=== PATIENT | female | born 1980 | race Caucasian/White ===

== ENCOUNTER 2022-01-31 15:38 | Observation (INO) | payer OTHER, SELFPAY ==
--- NOTE | ~2022-01-31 | XR_ITS ---
EXAMINATION: XR retrograde pyelo w/stent LT DATE: 02/01/2022 16:49 INDICATION: Left urolithiasis TECHNIQUE: 4 fluoroscopic images of the abdomen and pelvis were obtained during procedure performed b yuriy Kamara. Radiologist was not present for the imaging or procedure. The amount of fluoroscopy time used during this procedure was 0.4 minutes. COMPARISON: CT dated 01/31/2022 FINDINGS: The 6 x 2-3 mm with stone at the left ureterovesicular junction can be seen on the dental aide image. The s tone is no longer visualized on the subsequent images suggesting interval extraction. There is placem ent of a left internal ureteral stent with loops formed in the left renal pelvis and in the bladder. Small amount of injected contrast in the left renal collecting system demonstrates mild hydronephrosi s. IMPRESSION: 1. Left internal ureteral stent in expected position post likely left ureterovesicular junction stone extraction. Reviewed, dictated and finalized at location A. IMPRESSION: 1. Left internal ureteral stent in expected position post likely left ureterove sicular junction stone extraction.
--- NOTE | ~2022-01-31 | CT_ITS ---
EXAMINATION: CT abdomen pelvis w con DATE: 01/31/2022 16:54 INDICATION: Left-sided abdominal pain, nausea and vomiting. TECHNIQUE: Computed tomography (CT) of the abdomen and pelvis was performed with 100 mL Omnipaque-350 intravenous contrast. Automated exposure control and iterative reconstruction technique were employe d. The dose-length product was 303.61 mGy-cm. COMPARISON: None FINDINGS: Minimal dependent atelectasis in the bilateral lower lobes. Heart size is normal. No pericardial or p leural effusion. Mild cortical scarring at the upper pole of the left kidney. 6 mm nonobstructing sto ne at a lower pole calyx of the left kidney. 6 x 2-3 mm stone at the left ureterovesicular junction w ith mild left hydroureteronephrosis. Subcentimeter low-attenuation cysts in the right kidney and left hepatic lobe. Focal hepatic steatosis at the ligamentum teres. Gallbladder, spleen, pancreas and gracy ateral adrenal glands are normal. Bowels are normal with no wall thickening or obstruction. Tiny fat- containing umbilical hernia. Decompressed bladder is unremarkable. The uterus is not identified and h as likely been surgically resected. No free intraperitoneal gas or fluid. No pathologically enlarged abdominal or pelvic lymphadenopathy. Multiple phleboliths in the pelvis. Mild lumbar dextrocurvature. Transitional thoracolumbar and lumbosacral segments the latter sacralized on the left. IMPRESSION: 1. Left nephrolithiasis with obstructing 6 x 2-3 mm stone at the left ureterovesicular junction with mild left hydroureteronephrosis. Reviewed, dictated and finalized at location A. IMPRESSION: 1. Left nephrolithiasis with obstructing 6 x 2-3 mm stone at the left ureterove sicular junction with mild left hydroureteronephrosis.
[2022-01-31 15:40] VITALS: BP 139/94; PULSE 104; RESP 20; O2SAT 98
[2022-01-31] MEDS: ONDANSETRON INJ 4 MG/2 ML VIAL IV PUSH (16:11)
[2022-01-31] MEDS: SODIUM CHLORIDE 0.9% IV 1,000 ML 999 ML IV CONT (16:11)
[2022-01-31 16:12] LABS: Basophils Absolute Auto 0.1 K/mm3 (0.0-0.1); Basophils Percent Auto 1.2 % (0.2-1.2); Eosinophils Absolute Auto 0.2 K/mm3 (0-0.3); Eosinophils Percent Auto 2.5 % (0-4.4); Hematocrit 38.7 % (37.0-47.0); Hemoglobin 12.8 g/dL (12.0-15.0); Immature Granulocyte Absolute 0.01 K/mm3 (0.00-0.031); Immature Granulocyte Percent A 0.2 % (0-0.5); Lymphocytes Absolute Auto 1.82 K/mm3 (0.9-3.2); Lymphocytes Percent Auto 30.3 % (18.3-44.2); Mean Corpuscular HGB Conc 33.1 g/dl (32-36); Mean Corpuscular Hemoglobin 30.3 pg (26-34); Mean Corpuscular Volume 91.7 fl (80-100); Mean Platelet Volume 8.9 fl (7.4-10.4); Monocytes Absolute Auto 0.5 K/mm3 (0.1-0.6); Monocytes Percent Auto 8.2 % (2.6-8.5); Neutrophils Absolute Auto 3.5 K/mm3 (1.3-6.7); Neutrophils Percent Auto 57.6 % (45.5-73.1); Platelet Count Result 334 k/mm3 (150-375); Red Blood Count 4.22 M/mm3 (4.2-5.4); Red Cell Distribution Width 12.7 % (11.5-14.5)
[2022-01-31] MEDS: fentaNYL CITRATE INJ (*CRX) 100 MCG/2 ML VIAL 50 MCG IV PUSH (16:12)
[2022-01-31 16:25] LABS: Alanine Aminotransferase 27 U/L (4-35); Albumin Level 4.5 g/dL (3.5-5.1); Alkaline Phosphatase 111 U/L (38-126); Anion Gap 9 mmol/L (8-16); Aspartate Amino Transferase 35 U/L (14-36); Bilirubin,Total 0.3 mg/dL (0.2-1.3); Blood Urea Nitrogen 17 mg/dL (7-17); Calcium 8.9 mg/dL (8.4-10.2); Carbon Dioxide 23 mmol/L (22-30); Chloride 110 mmol/L (98-107); Estimated CRCL calculation 86 ml/min; Estimated Glomerular Filt Rate > 60; Glucose 85 mg/dL (65-110); Lipase 93 U/L (23-300); Potassium 3.9 mmol/L (3.4-5.0); Sodium 142 mmol/L (137-145)
[2022-01-31 16:40] VITALS: BP 139/94; PULSE 106; RESP 18; O2SAT 97
--- NOTE | 2022-01-31 16:41 | ED.ABDPAIN ---
HPI - Abdominal Pain General Chief Complaint: Abdominal Pain Stated Complaint: abd pain Time Seen by Provider: 01/31/22 15:46 Source: patient History of Present Illness HPI narrative: Patient presents with left-sided abdominal pain that started today her symptoms are sharp, constant, waxing waning intensity, without clear aggravating or alleviating factors. Her symptoms radiate across her back and abdomen. Reports a history of chronic UTIs and is frequently on antibiotics as well as frequent ureteral stones. Denies any vaginal bleeding or irritation she denies any constipation or diarrhea. Related Data Allergies Allergy/AdvReac Type Severity Reaction Status Date / Time adhesive Allergy Unknown BLISTERS Verified 01/31/22 19:35 aspirin Allergy Itching Verified 01/31/22 19:35 latex Allergy Hives Verified 01/31/22 19:35 codeine AdvReac Unknown N&V Verified 01/31/22 19:35 ketorolac [From Toradol] AdvReac Itching Verified 01/31/22 19:35 Review of Systems Review of Systems: CONSTITUTIONAL: Denies fever, chills, or sweats. EYES: Denies visual changes, redness, or discharge. ENT: Denies rhinorrhea, congestion, sore throat, or otalgia. CARDIOVASCULAR: Denies chest pain, palpitations, or edema. RESPIRATORY: Denies cough or dyspnea. GASTROINTESTINAL: Abdominal pain with nausea vomiting GENITOURINARY: Denies dysuria or hematuria. SKIN: Denies rash or itching. MUSCULOSKELETAL: Denies joint pain, or myalgia. NEUROLOGIC: Denies headache, numbness, dizziness, or weakness. PSYCHIATRIC: Denies anxiety or depression. All systems reviewed & are unremarkable except as noted in HPI and below PMFSH Past Medical History Medical History (Updated 01/31/22 @ 19:19 by Keyur Wilde MD) Ureteral stone Social History Social History (Updated 01/31/22 @ 16:43 by Keyur Wilde MD) Living arrangements: with family Exam Narrative: GENERAL: Well-appearing, well-nourished, and in moderate distress due to pain HEAD: Normocephalic, atraumatic. EYES: PERRLA and EOMI. ENT: Nares clear, no rhinorrhea or epistaxis. Mucous membranes moist. NECK: Supple. No masses. No JVD CHEST: Clear to auscultation. No respiratory distress. No wheezes rales or rhonchi HEART: Regular rate and rhythm. No murmur heard. Normal peripheral pulses. ABDOMEN: Exquisite left-sided abdominal pain with guarding soft, nondistended, normal active bowel sounds. EXTREMITIES: Normal range of motion. No edema. SKIN: Warm, dry, no rash. NEURO: No focal deficits. Alert and oriented x3. PSYCH: Normal mood and affect. Course Reevaluation(s) Reevaluation #1: Patient is difficult to control pain in the ER Case cussed with urology due to patient's severity of pain she would likely fail outpatient treatment. Will admit to the hospital seen for further management. Patient is comfortable inpatient plan. Date: 01/31/22 Time: 19:18 Vital Signs Vital signs: Vital Signs Pulse Rate 104 H 01/31/22 15:40 Respiratory Rate 20 01/31/22 15:40 Blood Pressure 139/94 H 01/31/22 15:40 Pulse Oximetry 98 01/31/22 15:40 Pulse Rate 93 01/31/22 19:46 Respiratory Rate 16 01/31/22 19:46 Blood Pressure 131/81 01/31/22 19:46 Pulse Oximetry 99 01/31/22 19:46 MDM - Abdominal Pain MDM Narrative Medical decision making narrative: Patient presented with left-sided abdominal pain history of chronic UTIs and and ureteral stones. Patient appeared to be in moderate distress. Labs and imaging obtained. UA concerning for infection imaging showing 6 mm left UVJ stone. Patient was given multiple dose of lidocaine to have pain due to patient's level of pain she will be admitted for pain control and urological evaluation. Case was discussed with urology will follow along. Patient excepted by hospitalist team for further management. Lab Data Result diagrams: 01/31/22 16:06 01/31/22 16:06 Labs: Lab Results 01/31/22 01/31/22 01/31/22 Range/Units
[2022-01-31] MEDS: HYDROmorphone HCL INJ (*CRX) 1 MG/ML SYR IV PUSH ×2 (17:14→18:36)
[2022-01-31 18:23] LABS: Appearance Urine Clear (Clear); Bilirubin Urine Negative (Negative); Blood Urine 2+ (Negative); Color Urine Yellow (Yellow); Glucose Urine UA Negative (Negative); Ketones Urine Trace mg/dL (Negative); Leukocyte Esterase Ur Negative LEU/UL (Negative); Nitrate Urine Positive (Negative); Protein Urine Negative (Negative); pH Urine 6.5 (5.0-9.0)
[2022-01-31 18:28] LABS: Bacteria Urine Trace /hpf; Mucus Urine Rare /lpf; RBC Urine 21-50 /hpf (0-2); Squamous Epithelial Cell Urine Rare /hpf (Few); WBC Urine 51-75 /hpf
[2022-01-31 18:29] LABS: Add Urine Microscopic? YES
[2022-01-31] MEDS: SODIUM CHLORIDE 0.9% IV 1,000 ML 125 ML IV CONT (19:37)
[2022-01-31 19:46] VITALS: BP 131/81; PULSE 93; RESP 16; O2SAT 99
[2022-01-31] MEDS: diphenhydrAMINE HCl CAP 25 MG CAPSULE PO (19:50)
[2022-01-31 21:05] VITALS: BMI 25.7
--- NOTE | 2022-01-31 21:09 | PM.IMHP ---
H&P: HPI History of Present Illness Date/Time: Patient was placed observation status for expected length of stay less than 23 hours for management, will plan to re-evaluate tomorrow for improvement. 01/31/22 21:09 Chief Complaint: Left abdominal/groin pain Narrative: Ms. Concepcion is a 41-year-old female who presented emergency room with complaints of left lower abdominal pain and groin pain that wrapped around to her left flank area. Patient states the pain began approximately 30-45 minutes prior to arrival to the emergency room. Patient states she has chronic urinary tract infections and she thought this may be the problem. Patient states she has had renal calculi in the past, but has been more like sand and not large stones. Patient states that she did notice hematuria last week that went away on its own. Patient states today she began noticing hematuria again and then had some nausea and vomiting yesterday and today. Patient denies any dysuria, frequency, or urgency. Patient denies any fever or chills. Patient states her only past medical history is chronic urinary tract infections. Review of Systems Review of Systems: A 12 point review of systems was completed patient all pertinent positive and negative per HPI the remainder are unremarkable. [facility] Past Medical History Medical History (Updated 01/31/22 @ 21:19 by Cora Mcfarland APRN) Chronic urinary tract infection Ureteral stone Surgical History Surgical History (Updated 01/31/22 @ 21:14 by Cora Mcfarland APRN) History of dilation and curettage History of total hysterectomy Social History Social History (Updated 01/31/22 @ 21:15 by Cora Mcfarland APRN) Smoking packs per day: 0.5 Smoking cigarettes per day: 10.0 Years smoked: 30 Smoking pack-years: 15.00 Smoking status: Current every day smoker Living arrangements: with family Meds Home Medications and Allergies Allergies Allergy/AdvReac Type Severity Reaction Status Date / Time adhesive Allergy Unknown BLISTERS Verified 01/31/22 19:35 aspirin Allergy Itching Verified 01/31/22 19:35 latex Allergy Hives Verified 01/31/22 19:35 codeine AdvReac Unknown N&V Verified 01/31/22 19:35 ketorolac [From Toradol] AdvReac Itching Verified 01/31/22 19:35 Vital Signs Vital Signs - 24 hr 01/31/22 15:40 01/31/22 16:40 01/31/22 19:46 Pulse Rate 104 H 106 H 93 Respiratory Rate 20 18 16 Blood Pressure 139/94 H 139/94 H 131/81 Pulse Oximetry 98 97 99 Exam Narrative: Constitutional: Patient is well-nourished in no acute distress. Patient is alert and oriented x3 HEENT: Moist mucous membranes. No scleral icterus. No lymphadenopathy. Neck: No carotid bruits noted no JVD noted Lungs: Lung sounds are clear to auscultation bilaterally. No accessory muscle use. No rhonchi, rales, or wheezes noted. Cardiovascular: Apical pulse is regular rate and rhythm. S1-S2 noted, no S3 or S4 noted. No gallops, murmurs, or rubs noted. Abdomen: Soft, round, and nontender. No palpable masses. Back: Patient complains of pain to her left costovertebral angle with palpation. Extremities: No edema. Nontender. Skin: No rashes or lesions. Warm and dry. Skin is intact. Neurological: No focal neurological deficits. Cranial nerves II-XII grossly intact. Psychiatric: Cooperative, appropriate mood, and affect H&P: Results Labs Labs: Short CBC 01/31/22 Range/Units 16:06 WBC 6.0 (4.5-10.0) K/mm3 Hgb 12.8 (12.0-15.0) g/dL Hct 38.7 (37.0-47.0) % Plt Count 334 (150-375) k/mm3 BMP 01/31/22 16:06 Sodium 142 Potassium 3.9 Chloride 110 H Carbon Dioxide 23 BUN 17 Creatinine 0.60 L Glucose 85 Calcium 8.9 Liver Function 01/31/22 Range/Units 16:06 Total Bilirubin 0.3 (0.2-1.3) mg/dL AST 35 (14-36) U/L ALT 27 (4-35) U/L Alkaline Phosphatase 111 (38-126) U/L Albumin 4.5 (3.5-5.1) g/dL Urine 01/31/22 Range/Units 18:14 Urine C
--- NOTE | 2022-01-31 21:21 | PC.NURSE ---
Spoke with Cora CEVALLOS) regarding patients dietary status. Cora CEVALLOS) okayed small food and water until midnight.
[2022-01-31 22:00] VITALS: BP 128/80; PULSE 90; RESP 16; TEMP 36.7; O2SAT 100
[2022-01-31] MEDS: HYDROmorphone HCL INJ (*CRX) 1 MG/ML SYR 0.5 MG IV PUSH (23:34)
[2022-01-31 23:36] VITALS: BMI 25.7
--- NOTE | 2022-01-31 23:41 | PC.NURSE ---
This patient, Matias Concepcion, was admitted to [facility] Surg Room 301-01. Patient/family oriented to hospital policies and general routines including ID bracelet, bed and alarms, visiting hours, pain management, procedures, bathroom and other care routines, personal items, smoking policy, room service/diet, and visiting hours. Information on how to activate the Rapid Response Team has been discussed. Patient/Family are encouraged to report perceived risks to care and to ask questions if they do not understand what they are told or what they should do.
[2022-02-01] VITALS (10 sets, daily range): BP systolic 108–142; BP diastolic 72–96; PULSE 76–94; RESP 12–20; TEMP 36.1–37.5; O2SAT 97–100
[2022-02-01] MEDS: HYDROmorphone HCL INJ (*CRX) 1 MG/ML SYR 0.5 MG IV PUSH ×6 (03:35→23:42)
[2022-02-01] MEDS: SODIUM CHLORIDE 0.9% IV 1,000 ML 125 ML IV CONT ×2 (03:39→18:18)
[2022-02-01 05:43] LABS: Basophils Percent Auto 0.6 % (0.2-1.2); Eosinophils Absolute Auto 0.2 K/mm3 (0-0.3); Eosinophils Percent Auto 2.7 % (0-4.4); Hematocrit 34.7 % (37.0-47.0); Hemoglobin 11.6 g/dL (12.0-15.0); Immature Granulocyte Absolute 0.02 K/mm3 (0.00-0.031); Immature Granulocyte Percent A 0.3 % (0-0.5); Lymphocytes Absolute Auto 2.03 K/mm3 (0.9-3.2); Lymphocytes Percent Auto 32.3 % (18.3-44.2); Mean Corpuscular HGB Conc 33.4 g/dl (32-36); Mean Corpuscular Hemoglobin 30.1 pg (26-34); Mean Corpuscular Volume 89.9 fl (80-100); Mean Platelet Volume 8.8 fl (7.4-10.4); Monocytes Absolute Auto 0.6 K/mm3 (0.1-0.6); Monocytes Percent Auto 10.2 % (2.6-8.5); Neutrophils Absolute Auto 3.4 K/mm3 (1.3-6.7); Neutrophils Percent Auto 53.9 % (45.5-73.1); Platelet Count Result 291 k/mm3 (150-375); Red Blood Count 3.86 M/mm3 (4.2-5.4); Red Cell Distribution Width 12.5 % (11.5-14.5); White Blood Count 6.3 K/mm3 (4.5-10.0)
[2022-02-01 05:51] LABS: Anion Gap 3 mmol/L (8-16); Blood Urea Nitrogen 13 mg/dL (7-17); Calcium 8.3 mg/dL (8.4-10.2); Carbon Dioxide 26 mmol/L (22-30); Chloride 108 mmol/L (98-107); Estimated CRCL calculation 86 ml/min; Estimated Glomerular Filt Rate > 60; Glucose 107 mg/dL (65-110); Potassium 3.7 mmol/L (3.4-5.0); Sodium 137 mmol/L (137-145)
[2022-02-01] MEDS: ONDANSETRON INJ 4 MG/2 ML VIAL IV PUSH ×2 (07:59→14:36)
--- NOTE | 2022-02-01 11:04 | WPDURCON ---
Assessment and Plan Assessment and plan (1) Ureteral stone: Code(s): N20.1 - Calculus of ureter Status: Acute Assessment and Plan: Plan to go to the OR today for: Cystoscopy, left ureteroscopy with possible left ureteral stone extraction, possible left stent placement, left retrograde pyelogram, possible holmium laser with Dr. Kamara. We discussed that a left stent placement and no stone removal today may be necessary d/t her infection. She understands that this would require a second outpatient ureteroscopy to remove her stone when her UTI is resolved, then a stent removal in the office 1-2 weeks after that. Keep NPO Obtain consent. (2) UTI (urinary tract infection): Qualifiers: Hematuria presence: with hematuria Urinary tract infection type: site unspecified Qualified Code(s): N39.0 - Urinary tract infection, site not specified; R31.9 - Hematuria, unspecified Code(s): N39.0 - Urinary tract infection, site not specified Status: Acute Assessment and Plan: Continue IV antibiotics, tailor to culture results. Urology Consult Note HPI Date Seen: 02/01/22 Requesting Physician: Renée Lopez MD Primary Care Provider: UNKNOWN,DOCTOR Consult Narrative Narrative: Matias Concepcion is a 41 year old female who presented to the ER last night for acute onset of LLQ pain that radiates to the left flank, this is accompanied by nausea, dysuria, hematuria, and chills. Her nausea began one week ago, however the other symptoms started yesterday. She states she has a history of chronic UTI's and stones which she passes spontaneously. She has never seen a urologist. She was found on CT in the ER to have a 4m0-0ij left UVJ stone with hydronephrosis. Her WBC is 6.3, creatinine is 0.60 and her UA is suggestive of a UTI with positive nitrites. She has a urine culture pending. She is afebrile at this time. Patient is crying at the bedside and stating her pain is a 3/10 after dilaudid but she is very uncomfortable. Review of Systems Cardiovascular: Cardiovascular: Denies chest pain Respiratory: Respiratory: Reports no additional respiratory complaints Gastrointestinal: Gastrointestinal: Reports abdominal pain (LLQ), Reports nausea and Denies vomiting Genitourinary: Genitourinary: Reports hematuria, Reports dysuria, Denies pelvic pain and Reports flank pain PMFSH Past Medical History Medical History Chronic urinary tract infection Ureteral stone Surgical History Surgical History History of dilation and curettage History of total hysterectomy Social History Social History Smoking packs per day: 0.5 Smoking cigarettes per day: 10.0 Years smoked: 30 Smoking pack-years: 15.00 Smoking status: Current every day smoker Tobacco type: cigarettes Second hand tobacco smoke exposure: Yes Alcohol intake: never Substance use: never Substance use type: does not use Living arrangements: with family Spiritual care concerns: No Meds Home Medications and Allergies Home Medications Medication Instructions Recorded Confirmed Type No Home Medications 02/01/22 02/01/22 History Allergies Allergy/AdvReac Type Severity Reaction Status Date / Time adhesive Allergy Unknown BLISTERS Verified 01/31/22 19:35 aspirin Allergy Itching Verified 01/31/22 19:35 latex Allergy Hives Verified 01/31/22 19:35 codeine AdvReac Unknown N&V Verified 01/31/22 19:35 ketorolac [From Toradol] AdvReac Itching Verified 01/31/22 19:35 Vital Signs Vital Signs - 24 hr 01/31/22 15:40 01/31/22 16:40 01/31/22 19:46 Temperature Pulse Rate 104 H 106 H 93 Respiratory Rate 20 18 16 Blood Pressure 139/94 H 139/94 H 131/81 Pulse Oximetry 98 97 99 01/31/22 22:00 02/01/22 06:00 02/01/22 08:19 Temperature 98.1
--- NOTE | 2022-02-01 11:41 | PM.IMPN ---
Progress Note: A&P Assessment and Plan (1) Hydronephrosis with renal and ureteral calculous obstruction: Code(s): N13.2 - Hydronephrosis with renal and ureteral calculous obstruction Status: Acute Assessment and Plan: Urology has been consult injury appreciate assistance and recommendations Patient has been NPO until evaluated by Urology, patient is planned for the OR this afternoon for a cystoscopy, left ureteroscopy with possible left urethral stone extraction, possible left stent placement and left retrograde pyelogram with Dr. Art Pain management (2) UTI (urinary tract infection): Qualifiers: Hematuria presence: with hematuria Urinary tract infection type: site unspecified Qualified Code(s): N39.0 - Urinary tract infection, site not specified; R31.9 - Hematuria, unspecified Code(s): N39.0 - Urinary tract infection, site not specified Status: Acute Assessment and Plan: Patient received Rocephin in the emergency room will continue with current regimen and await culture and sensitivity reports. Subjective Date/time seen: 02/01/22 11:41 Patient is alert and oriented this morning. She appeared to be in significant amount of lower abdominal pain. Urology was able to evaluate the patient and suggested going to the OR today for cystoscopy with possible left urethral stone extraction and stent placement. Patient was agreeable. Patient continues to receive IV antibiotics for her urinary tract infection, pending urine cultures. No acute events reported by RN during the night Review of Systems Review of Systems: All systems reviewed & are unremarkable except as noted in HPI and below Exam Narrative: Constitutional: Patient is well-nourished in no acute distress. Patient is alert and oriented x3 HEENT: Moist mucous membranes. No scleral icterus. No lymphadenopathy. Neck: No carotid bruits noted no JVD noted Lungs: Lung sounds are clear to auscultation bilaterally. No accessory muscle use. No rhonchi, rales, or wheezes noted. Cardiovascular: Apical pulse is regular rate and rhythm. S1-S2 noted, no S3 or S4 noted. No gallops, murmurs, or rubs noted. Abdomen: Soft, round, and nontender. No palpable masses. Back: Patient complains of pain to her left costovertebral angle with palpation. Extremities: No edema. Nontender. Skin: No rashes or lesions. Warm and dry. Skin is intact. Neurological: No focal neurological deficits. Cranial nerves II-XII grossly intact. Psychiatric: Cooperative, appropriate mood, and affect Objective Data Vital Signs Vital Signs: Vital Signs - 24 hr 01/31/22 15:40 01/31/22 16:40 01/31/22 19:46 Temperature Pulse Rate 104 H 106 H 93 Respiratory Rate 20 18 16 Blood Pressure 139/94 H 139/94 H 131/81 Pulse Oximetry 98 97 99 01/31/22 22:00 02/01/22 06:00 02/01/22 08:19 Temperature 98.1 F 99.5 F Pulse Rate 90 94 Respiratory Rate 16 18 Blood Pressure 128/80 136/96 H Pulse Oximetry 100 98 98 Intake/Output Intake/Output: Intake & Output 01/29/22 01/30/22 01/31/22 02/01/22 23:59 23:59 23:59 23:59 Intake Total 1050 1000 Output Total 475 Balance 1050 525 Meds/Results Medications: Active Medications Generic Name Dose Route Start Last Admin Trade Name Freq PRN Reason Stop Dose Admin Hydromorphone HCl 0.5 mg 01/31/22 21:04 02/01/22 10:50 Hydromorphone Hcl Inj (*Crx) 1 Mg/Ml Syr IV PUSH 0.5 mg Q3H PRN Administration Pain Rated 7-10 Acetaminophen 1,000 mg in 100 mls @ 400 mls/hr 01/31/22 19:19 Ofirmev 1,000 Mg Ivpb IVPB 02/01/22 19:18 Q6H PRN Mild Pain (1-3) or Fever Sodium Chloride 1,000 mls @ 125 mls/hr 01/31/22 19:20 02/01/22 03:39 Normal Saline Iv IV CONT 125 mls/hr .Q8H LALIT Administration Ceftriaxone Sodium/Dextrose 1 gm in 50 mls @ 100 mls/hr 02/01/22 18:00 Rocephin 1 Gm/D5w 50 Ml IVPB Q24H LALIT Ondansetron HCl 4 mg 01/31/22 19:19 02/01/22 07:
--- NOTE | 2022-02-01 14:45 | PC.NURSE ---
This patient, Matias Concepcion, was transferred to [cystoscopy] on 02/01/22 at 1421. Personal belongings sent with patient. Report given to [ ]. Appropriate documentation sent with patient.
--- NOTE | 2022-02-01 14:51 | WPDANESEPPF ---
Anes - Initial Pre Proc Eval Procedure: Operation Date: 02/01/22 15:30 Proposed Procedures p Cystoscopy, Left Ureteroscopy, Left Retrograde Pyelogram, Left Stone Extraction, Possible Left Stent Placement, - Sary Kamara MD s Possible Holmium Laser Procedure - Sary Kamara MD Date/Time: 02/01/22 14:51 Surgeon: Renée Lopez MD Pre Op Diagnosis: ureteral stone Patient Data Age: 41 Gender: F Height: 1.6 m Weight: 65.9 kg Last Vital Signs Temp 36.6 C 02/01/22 14:44 Pulse 80 02/01/22 14:44 Resp 16 02/01/22 14:44 BP 134/72 02/01/22 14:44 Pulse Ox 100 02/01/22 14:44 Allergies Allergy/AdvReac Type Severity Reaction Status Date / Time adhesive Allergy Unknown BLISTERS Verified 01/31/22 19:35 aspirin Allergy Itching Verified 01/31/22 19:35 latex Allergy Hives Verified 01/31/22 19:35 codeine AdvReac Unknown N&V Verified 01/31/22 19:35 ketorolac [From Toradol] AdvReac Itching Verified 01/31/22 19:35 Home Medications Medication Instructions Recorded Confirmed Type No Home Medications 02/01/22 02/01/22 History Laboratory Tests 01/31/22 01/31/22 01/31/22 16:06 16:06 16:06 WBC 6.0 K/mm3 K/mm3 (4.5-10.0) RBC 4.22 M/mm3 M/mm3 (4.2-5.4) Hgb 12.8 g/dL g/dL (12.0-15.0) Hct 38.7 % % (37.0-47.0) MCV 91.7 fl fl (80-100) MCH 30.3 pg pg (26-34) MCHC 33.1 g/dl g/dl (32-36) RDW 12.7 % % (11.5-14.5) Plt Count 334 k/mm3 k/mm3 (150-375) MPV 8.9 fl fl (7.4-10.4) Immature Gran % (Auto) 0.2 % % (0-0.5) Neut % (Auto) 57.6 % % (45.5-73.1) Lymph % (Auto) 30.3 % % (18.3-44.2) Harlan % (Auto) 8.2 % % (2.6-8.5) Eos % (Auto) 2.5 % % (0-4.4) Baso % (Auto) 1.2 % % (0.2-1.2) Lymph # (Auto) 1.82 K/mm3 K/mm3 (0.9-3.2) Harlan # (Auto) 0.5 K/mm3 K/mm3 (0.1-0.6) Eos # (Auto) 0.2 K/mm3 K/mm3 (0-0.3) Baso # (Auto) 0.1 K/mm3 K/mm3 (0.0-0.1) Abs Immat Gran (auto) 0.01 K/mm3 K/mm3 (0.00-0.031) Absolute Neuts (auto) 3.5 K/mm3 K/mm3 (1.3-6.7) Absolute Nucleated RBC 0.0 K/mm3 K/mm3 (0.0-0.012) Nucleated RBC % 0.0 % % (0.0-0.2) Sodium 142 mmol/L mmol/L (137-145) Potassium 3.9 mmol/L mmol/L (3.4-5.0) Chloride 110 mmol/L H mmol/L (98-107) Carbon Dioxide 23 mmol/L mmol/L (22-30) Anion Gap 9 mmol/L mmol/L (8-16) BUN 17 mg/dL mg/dL (7-17) Creatinine 0.60 mg/dL L mg/dL (0.7-1.0) Estim Creat Clear Calc 86 ml/min ml/min Estimated GFR > 60 (59 - ) Glucose 85 mg/dL mg/dL (65-110) Calcium 8.9 mg/dL mg/dL (8.4-10.2) Total Bilirubin 0.3 mg/dL mg/dL (0.2-1.3) AST 35 U/L U/L (14-36) ALT 27 U/L U/L (4-35) Alkaline Phosphatase 111 U/L U/L (38-126) Total Protein 7.0 g/dL g/dL (6.3-8.2) Albumin 4.5 g/dL g/dL (3.5-5.1) Lipase 93 U/L U/L Cancelled (23-300) Urine Color Urine Appearance Urine pH Ur Specific [place] Urine Protein Urine Glucose (UA) Urine Ketones Ur Blood (Man) Urine Nitrate Urine Bilirubin Urine Urobilinogen Leukocyte Esterase Rfl Urine RBC Urine WBC Ur Squamous Epith Cells Urine Bacteria Urine Mucus 01/31/22 02/01/22 02/01/22 18:14 05:28 05:28 WBC 6.3 K/mm3 K/mm3 (4.5-10.0) RBC 3.86 M/mm3 L M/mm3 (4.2-5.4) Hgb 11.6 g/dL L g/dL (12.0-15.0) Hct 34.7 % L % (37.0-47.0) MCV 89.9 fl fl (80-100) MCH 30.1 pg pg (26-34) MCHC 33.4 g/dl g/dl (32-36)
--- NOTE | 2022-02-01 16:24 | WPDHPUPDATE1 ---
History and Physical Update Update Date/Time: 02/01/22 16:24 History and Physical has been reviewed, including an updated exam of the patient. There are NO changes in the patient's condition. Risks, benefits, and alternatives have been discussed and questions answered. Patient agrees to proceed with procedure.
[2022-02-01] MEDS: LIDOCAINE HCL 2% GEL UROJET 10 ML PKG MUCOUS MEM (16:38)
--- NOTE | 2022-02-01 16:48 | W.PM.PROC2 ---
Procedure Note - Detailed Date of Procedure 02/01/22 Pre-op Diagnosis left ureteral stone, hydronephrosis Post-op Diagnosis Same Procedure Performed Cystoscopy, left ureteroscopy, stone extraction, retrograde pyelogram, stent insertion Surgeon Sary Kamara MD Anesthesia General Description of Procedure Informed consent was obtained. Patient was the operating. She was given preoperative IV antibiotics. She reduced anesthesia. She was prepped draped normal sterile fashion. Inserted a 20 F cystoscope through the urethra into the bladder inspected the bladder and there were no mucosal abnormalities except the inflammation around the left ureteral orifice with a stone impacted and at the ureteral orifice. I was able to then manipulate a wire past the stone and dilate the distal ureter. As the stone was impacted at the distal ureter and visible from the bladder, I advanced a semi rigid ureteral scope into the distal ureter without pressure, grasped the stone with a basket and easily removed it. A retrograde pyelogram revealed moderate hydroureteronephrosis and no residual filling defects. Over this wire a 6 F variable length stent was placed with a curl in renal pelvis from bladder. Bladder was emptied. 10cc of viscous lidocaine were instilled. Patient taken to PACU in stable condition Urine Output 475 Drains No Packing No Pathology Yes Complications No immediate complications Condition Stable Disposition PACU
[2022-02-01] MEDS: LACTATED RINGERS 1,000 ML 30 ML IV CONT ×2 (16:52→17:17)
[2022-02-01] MEDS: fentaNYL CITRATE INJ (*CRX) 100 MCG/2 ML VIAL 25 MCG IV PUSH ×4 (17:07→17:25)
[2022-02-01] MEDS: diphenhydrAMINE HCl INJ 50 MG/ML VIAL 25 MG IV PUSH (17:15)
[2022-02-02] MEDS: SODIUM CHLORIDE 0.9% IV 1,000 ML 125 ML IV CONT (02:22)
[2022-02-02 05:00] VITALS: BP 108/57; PULSE 82; RESP 16; TEMP 37; O2SAT 98
[2022-02-02 07:52] VITALS: BP 106/69; PULSE 77; RESP 16; TEMP 36.4; O2SAT 100
--- NOTE | 2022-02-02 09:00 | WPDUROPN2 ---
Progress Note: A&P Assessment and Plan (1) Hydronephrosis with renal and ureteral calculous obstruction: Code(s): N13.2 - Hydronephrosis with renal and ureteral calculous obstruction Status: Acute Assessment and Plan: Will plan to get a KYRA in a few weeks to ensure hydro resolves. (2) Ureteral stone: Code(s): N20.1 - Calculus of ureter Status: Acute Assessment and Plan: Resolved via ureteroscopy. (3) UTI (urinary tract infection): Qualifiers: Hematuria presence: with hematuria Urinary tract infection type: site unspecified Qualified Code(s): N39.0 - Urinary tract infection, site not specified; R31.9 - Hematuria, unspecified Code(s): N39.0 - Urinary tract infection, site not specified Status: Acute Assessment and Plan: Urine Culture growing gram negative Bacilli, continue IV antibiotics, tailor PO antibiotics to culture sensitive recommendations. Ok to discharge home at any time per urology. She will follow up in one week with Dr. Kamara for a stent removal in the office. Subjective Subjective Date/Time Seen: 02/02/22 09:00 POD #1 Cystoscopy, left ureteroscopy with stone extraction, left retrograde pyelogram, left stent placement. Patient is much more comfortable today, she is tolerating her stent well and sleeping in bed upon exam today. She is tolerating diet, urination and activity well. Review of Systems Cardiovascular: Cardiovascular: Denies chest pain Respiratory: Respiratory: Reports no additional respiratory complaints Gastrointestinal: Gastrointestinal: Reports abdominal pain, Denies nausea and Denies vomiting Genitourinary: Genitourinary: Reports hematuria, Denies pelvic pain, Reports flank pain and Reports urinary urgency Exam Resp: Effort & Inspection: normal respiratory effort Cardio: Rate: regular rate GI: GI Palp: Yes Soft to palpation and Yes Tenderness to palpation present (GI) (LLQ) : General: Yes CVA tenderness on the left Extrem: General: no edema Objective Data Vital Signs Vital Signs: Vital Signs - 24 hr 02/01/22 14:00 02/01/22 14:44 02/01/22 16:52 Temperature 98.3 F 97.9 F 97.0 F L Pulse Rate 81 80 76 Respiratory Rate 20 16 12 Blood Pressure 142/82 H 134/72 108/76 Pulse Oximetry 98 100 100 02/01/22 17:05 02/01/22 17:20 02/01/22 17:35 Temperature Pulse Rate 92 83 77 Respiratory Rate 18 16 16 Blood Pressure 138/85 135/80 117/93 H Pulse Oximetry 100 100 99 02/01/22 17:47 02/01/22 22:07 02/02/22 05:00 Temperature 97.8 F 98.6 F Pulse Rate 77 91 82 Respiratory Rate 14 18 16 Blood Pressure 132/80 128/87 108/57 L Pulse Oximetry 97 100 98 02/02/22 07:52 Temperature 97.5 F L Pulse Rate 77 Respiratory Rate 16 Blood Pressure 106/69 Pulse Oximetry 100 Intake/Output Intake/Output: Intake & Output 01/30/22 01/31/22 02/01/22 02/02/22 23:59 23:59 23:59 23:59 Intake Total 1050 2750 1000 Output Total 1200 850 Balance 1050 1550 150 Meds/Results Medications: Active Medications Generic Name Dose Route Start Last Admin Trade Name Freq PRN Reason Stop Dose Admin Cefdinir 300 mg 02/03/22 09:00 Cefdinir 300 Mg Capsule PO Q12HR LALIT Hydromorphone HCl 0.5 mg 01/31/22 21:04 02/01/22 23:42 Hydromorphone Hcl Inj (*Crx) 1 Mg/Ml Syr IV PUSH 0.5 mg Q3H PRN Administration Pain Rated 7-10 Sodium Chloride 1,000 mls @ 125 mls/hr 01/31/22 19:20 02/02/22 02:22 Normal Saline Iv IV CONT 125 mls/hr .Q8H LALIT Administration Ceftriaxone Sodium/Dextrose 1 gm in 50 mls @ 100 mls/hr 02/01/22 18:00 02/01/22 18:49 Rocephin 1 Gm/D5w 50 Ml IVPB 02/02/22 22:00 Infused Q24H LALIT Infusion Ondansetron HCl 4 mg 01/31/22 19:19 02/01/22 14:36 Ondansetron Inj 4 Mg/2 Ml Vial IV PUSH 4 mg Q4H PRN Administration Nausea Radiology Results: ITS Impressions Abdomen/Pelvis CT 01/31/22 16:56 IMPRESSION: 1. Left nephrolithiasis with obstructing 6 x
[2022-02-02] MEDS: HYDROmorphone HCL INJ (*CRX) 1 MG/ML SYR 0.5 MG IV PUSH (09:01)
--- NOTE | 2022-02-02 10:55 | WPDANESPN ---
Anes - Prog Note Post-Op Date/Time: 02/02/22 10:55 Cardiovascular status: normal Respiratory status: normal Airway patency: baseline Mental status: baseline Post-Op hydration status: normal Vital Signs: Last Vital Signs Temp 36.4 C L 02/02/22 07:52 Pulse 77 02/02/22 07:52 Resp 16 02/02/22 07:52 BP 106/69 02/02/22 07:52 Pulse Ox 100 02/02/22 07:52 Pain Score (VAS): 2/10 I/O: Intake & Output 02/01/22 02/02/22 02/02/22 23:59 07:59 15:59 Intake Total 750 1000 250 Output Total 725 850 Balance 25 150 250 Laboratory Tests 02/01/22 05:28 02/01/22 05:28 Microbiology 01/31/22 18:14 Urine Clean Catch Urine Culture - Final Klebsiella pnemoniae Post-procedural complaints: none Patient Feedback: Patient satisfied with anesthetic care.
--- NOTE | 2022-02-02 10:59 | PM.DS ---
DS: Admitting Diagnosis Discharge Date 02/02/2022 Admitting Diagnosis Hydronephrosis UTI Obstructing stone DS: Discharge Diagnosis Discharge Diagnosis (1) Hydronephrosis with renal and ureteral calculous obstruction: Code(s): N13.2 - Hydronephrosis with renal and ureteral calculous obstruction Status: Acute Assessment and Plan: Urology has been consult injury appreciate assistance and recommendations Patient has been NPO until evaluated by Urology, patient is planned for the OR this afternoon for a cystoscopy, left ureteroscopy with possible left urethral stone extraction, possible left stent placement and left retrograde pyelogram with Dr. Art Pain management (2) UTI (urinary tract infection): Qualifiers: Hematuria presence: with hematuria Urinary tract infection type: site unspecified Qualified Code(s): N39.0 - Urinary tract infection, site not specified; R31.9 - Hematuria, unspecified Code(s): N39.0 - Urinary tract infection, site not specified Status: Acute Assessment and Plan: Patient received Rocephin in the emergency room will continue with current regimen and await culture and sensitivity reports. (3) Ureteral stone: Code(s): N20.1 - Calculus of ureter Status: Acute DS: Summary Hospital Course Reason for hospitalization: Hydronephrosis, UTI and obstructing stone Hospital Course: Patient is a 41-year-old female with a minimal past medical history. Patient presented to the emergency room with complaints of left lower abdominal pain and groin pain that wrapped around to her left flank area. She reports pain began approximately 30-45 minutes prior to arrival to the emergency department on 01/31/2022. Patient reports that she has had chronic urinary tract infections which she believes contributed to her pain. Patient does report a history of renal calculi in the past but has been more like sand and not large stones and easily passable with conservative treatment. Patient did begin to notice hematuria last week, however it did go away on its own. Patient came back to the emergency department after again noticing hematuria associated with nausea and vomiting. She denied any urinary frequency urgency, fever or chills. While in the emergency department labs and imaging were obtained. Labs are significant for WBC of 6.0, hemoglobin 12.8, hematocrit 38.7 and platelet 334, sodium 142, potassium 3.9, creatinine 0.6 and BUN is 17. Normal LFTs. Urinalysis was obtained which revealed clear yellow urine is negative protein and negative glucose, positive nitrites, 2+ blood, urine RBC 21-50 and urine WBC 50 1-75. She was empirically started on Rocephin in the emergency department and continued during her hospitalization. Urology was consulted after finding of a left nephrolithiasis with obstructing 6 x 2-3 mm stone at the left UVJ with mild left hydroureter nephrosis that was revealed a CT of the abdomen and pelvis. Patient went to surgery for Cystoscopy, left ureteroscopy, stone extraction, retrograde pyelogram, stent insertion. See operative note by urologist. Upon arrival back to the room the patient reported decreased pain and was able to consume a meal and passed flatus without difficulty. Patient did have some hematuria that was noted and reported to clinician. Hematuria did clear up and the patient reports that she does not recognize any blood in her urine at this time. Patient will be transitioned to cefdinir upon discharge as it is sensitive to cephalosporins, Klebsiella pneumoniae was found in her urine culture. Patient is to follow-up with urology within 1 week to have stent removal. Status at Discharge Cognitive/behavioral status at discharge: Alert and oriented x4 Functional status at discharge: independent ambulation Overall status at discharge: patient is back to baseline Time Spent with Patient Time attestation: Total time spent providing and/or coordinating dis
== END 2022-02-02 12:15 | disposition home or self-care (01) ==
LOC: ANHED 19:19 → ANH3MEDSUR 02-01 05:43
PROVIDERS: Emergency Medicine; Nurse Practitioner Adult Health; Urology; Admitting Provider Family Medicine; Emergency Provider Emergency Medicine; Visit Provider Nurse Practitioner Family
PROC: (CPT 52352; principal; 2022-02-01 15:30)
DX: N13.2 Hydronephrosis with renal and ureteral calculous obstruction (principal); N39.0 Urinary tract infection, site not specified; R31.9 Hematuria, unspecified; F17.210 Nicotine dependence, cigarettes, uncomplicated
CPT/HCPCS: 52332; 52352; 36415; 74177; 74420; 80048; 80053; 81001; 82365; 83690; 85025; 87077; 87086; 87088; 87186; 88300; 96361; 96365; 96374; 96375; 96376; 99285; A9270; C1769; C2617; G0378; G0379; J0696; J1100; J1170; J1200; J2405; J2704; J3010; J7030; J7120; Q9966; Q9967

== ENCOUNTER 2022-02-06 01:35 | Emergency (ER) | payer OTHER, SELFPAY ==
[2022-02-06] VITALS (15 sets, daily range): BP systolic 126–158; BP diastolic 78–100; PULSE 94–104; RESP 18; TEMP 36; O2SAT 99–100
--- NOTE | ~2022-02-06 | CT_ITS ---
EXAMINATION: CT abdomen pelvis w con DATE: 02/06/2022 03:52 INDICATION: Left flank pain. Left lower quadrant abdominal pain. TECHNIQUE: Computed tomography (CT) of the abdomen and pelvis was performed with 100 mL Omnipaque 350 intravenous contrast. Automated exposure control and iterative reconstruction technique were employe d. The dose-length product was 328.22 mGy-cm. COMPARISON: CT abdomen and pelvis 01/31/2022 FINDINGS: The visualized portions of the lung bases demonstrate minimal atelectasis. No pleural effus ion. The heart size is normal. No pericardial effusion. There is a 7 mm cyst in the liver. The gallbl adder, spleen, pancreas, and adrenal glands are normal. There are cyst in right kidney measuring up t o 8 mm. There is cortical thinning of left kidney. There is a 6 mm stone in left kidney. There is mil d left hydronephrosis and hydroureter. There is a left internal ureteral stent in expected position. There are no dilated loops of bowel. The appendix is normal. There are no pathologically enlarged lym ph nodes. There is no free intraperitoneal fluid. There is mild lumbar spondylosis. IMPRESSION: 1. Mild left hydronephrosis and hydroureter with left internal ureteral stent in expected position. 2. 6 mm nonobstructing left kidney stone. Reviewed, dictated and finalized at location A. IMPRESSION: 1. Mild left hydronephrosis and hydroureter with left internal ureteral stent i n expected position. 2. 6 mm nonobstructing left kidney stone.
[2022-02-06] MEDS: SODIUM CHLORIDE 0.9% IV 1,000 ML 999 ML IV CONT (02:52)
[2022-02-06] MEDS: MORPHINE SULFATE (*CRX) 4 MG/ML INJ IV PUSH (02:53)
[2022-02-06] MEDS: ONDANSETRON INJ 4 MG/2 ML VIAL IV PUSH (02:53)
[2022-02-06 03:13] LABS: Basophils Absolute Auto 0.1 K/mm3 (0.0-0.1); Basophils Percent Auto 0.6 % (0.2-1.2); Eosinophils Absolute Auto 0.2 K/mm3 (0-0.3); Eosinophils Percent Auto 2.5 % (0-4.4); Hematocrit 38.5 % (37.0-47.0); Hemoglobin 12.7 g/dL (12.0-15.0); Immature Granulocyte Absolute 0.02 K/mm3 (0.00-0.031); Immature Granulocyte Percent A 0.3 % (0-0.5); Lymphocytes Absolute Auto 2.37 K/mm3 (0.9-3.2); Lymphocytes Percent Auto 29.7 % (18.3-44.2); Monocytes Absolute Auto 0.8 K/mm3 (0.1-0.6); Neutrophils Absolute Auto 4.5 K/mm3 (1.3-6.7); Neutrophils Percent Auto 56.9 % (45.5-73.1); Platelet Count Result 305 k/mm3 (150-375); Red Blood Count 4.23 M/mm3 (4.2-5.4); Red Cell Distribution Width 12.8 % (11.5-14.5)
[2022-02-06 03:21] LABS: Add Urine Microscopic? YES; Appearance Urine Cloudy (Clear); Bilirubin Urine Negative (Negative); Blood Urine 2+ (Negative); Color Urine Red (Yellow); Glucose Urine UA 1+ mg/dL (Negative); Ketones Urine Trace mg/dL (Negative); Leukocyte Esterase Ur Trace LEU/UL (Negative); Mucus Urine Rare /lpf; Nitrate Urine Negative (Negative); Protein Urine 2+ mg/dL (Negative); RBC Urine >75 /hpf (0-2); Specific Grav Ur 1.026 (1.001-1.035); Squamous Epithelial Cell Urine Moderate /hpf (Few); Urobilinogen Urine Negative mg/dL (<2.0); WBC Urine >75 /hpf
[2022-02-06 03:24] LABS: Alanine Aminotransferase 47 U/L (4-35); Alkaline Phosphatase 104 U/L (38-126); Anion Gap 4 mmol/L (8-16); Aspartate Amino Transferase 42 U/L (14-36); Bilirubin,Total < 0.1 mg/dL (0.2-1.3); Blood Urea Nitrogen 21 mg/dL (7-17); Calcium 9.3 mg/dL (8.4-10.2); Carbon Dioxide 25 mmol/L (22-30); Chloride 108 mmol/L (98-107); Estimated CRCL calculation 75 ml/min; Estimated Glomerular Filt Rate > 60; Glucose 101 mg/dL (65-110); Sodium 137 mmol/L (137-145)
[2022-02-06 03:28] LABS: Lactic Acid Reflex < 0.5 mmol/L (0.7-2.1)
--- NOTE | 2022-02-06 03:32 | PC.NURSE ---
Patient taken to CT at this time.
--- NOTE | 2022-02-06 03:50 | PC.NURSE ---
Patient ambulated to the bathroom and back to her room with an even steady unassisted gait.
[2022-02-06] MEDS: HYDROmorphone HCL INJ (*CRX) 1 MG/ML SYR IV PUSH (04:12)
--- NOTE | 2022-02-06 06:08 | ED.ABDPAIN ---
HPI - Abdominal Pain General Chief Complaint: Abdominal Pain Stated Complaint: abd/lower back pain Time Seen by Provider: 02/06/22 02:02 History of Present Illness HPI narrative: Patient is a 41-year-old female who presents ER with left-sided flank pain and left lower quadrant pain. Patient recently underwent ureteroscopy with stone removal and ureteral stent placement. Performed by Dr. Kamara. No fevers or chills or sweats. Developed new hematuria tonight. Called the on-call line and they referred her here to get a CT scan for further evaluation. Patient denies fevers or chills or sweats. She has been taking [place] for pain. Related Data Allergies Allergy/AdvReac Type Severity Reaction Status Date / Time adhesive Allergy Unknown BLISTERS Verified 01/31/22 19:35 aspirin Allergy Itching Verified 01/31/22 19:35 latex Allergy Hives Verified 01/31/22 19:35 codeine AdvReac Unknown N&V Verified 01/31/22 19:35 ketorolac [From Toradol] AdvReac Itching Verified 01/31/22 19:35 Review of Systems Review of Systems: All systems reviewed & are unremarkable except as noted in HPI and below Constitutional: Constitutional: Denies chills, Denies fever(s) and Denies weakness ENT: Denies nasal congestion and Denies sore throat Cardiovascular: Cardiovascular: Denies chest pain, Denies rapid heart rate and Denies radiating jaw, neck or arm pain Respiratory: Respiratory: Denies cough, Denies dyspnea and Denies wheezing Gastrointestinal: Gastrointestinal: Reports abdominal pain, Denies nausea and Denies vomiting Genitourinary: Genitourinary: Reports hematuria, Denies nocturia, Denies dysuria and Reports flank pain [facility] Past Medical History Medical History Chronic urinary tract infection Ureteral stone Surgical History Surgical History History of dilation and curettage History of total hysterectomy Social History Social History Smoking packs per day: 0.5 Smoking cigarettes per day: 10.0 Years smoked: 30 Smoking pack-years: 15.00 Smoking status: Current every day smoker Tobacco type: cigarettes Second hand tobacco smoke exposure: Yes Alcohol intake: never Substance use: never Substance use type: does not use Spiritual care concerns: No Exam Narrative: GENERAL: Uncomfortable-appearing, well-nourished, and in mild distress. HEAD: Normocephalic, atraumatic. ENT: Mucous membranes moist. CHEST: Clear to auscultation. No respiratory distress. HEART: Regular rate and rhythm. Normal peripheral pulses. ABDOMEN: Soft, mild tenderness in left lower quadrant without guarding, nondistended, normal active bowel sounds. Left CVA tenderness. EXTREMITIES: Normal range of motion. No edema. SKIN: Warm, dry, no rash. NEURO: Alert and oriented x3. PSYCH: Normal mood and affect. Course Course Emergency Course: Patient informed of results. Discussed case with Dr. Tapia. Patient grew out Klebsiella pneumonia and previous urine culture which should be sensitive to cefdinir based on sensitivities. We will change patient's pain medication to Percocet and add oxybutynin at the recommendation of urology. It is felt this is all stent pain and patient will be getting her stent out 02/10/2022. Vital Signs Vital signs: Vital Signs Temperature 96.8 F L 02/06/22 01:45 Pulse Rate 104 H 02/06/22 01:45 Respiratory Rate 18 02/06/22 01:45 Blood Pressure 132/78 02/06/22 01:45 Pulse Oximetry 100 02/06/22 01:45 Temperature 96.8 F L 02/06/22 03:20 Pulse Rate 104 H 02/06/22 01:45 Respiratory Rate 18 02/06/22 01:45 Blood Pressure 142/83 H 02/06/22 04:00 Pulse Oximetry 99 02/06/22 04:01 MDM - Abdominal Pain Lab Data Result diagrams: 02/06/22 03:03 02/06/22 03:03 Labs: Lab Results 02/06/2202/06
[2022-02-06] MEDS: OXYBUTYNIN CHLORIDE 5 MG TABLET PO (06:38)
== END 2022-02-06 06:53 | disposition home or self-care (01) ==
PROVIDERS: Emergency Provider Emergency Medicine
DX: T83.84XA Pain due to genitourinary prosthetic devices, implants and grafts, initial encounter (principal); Z87.442 Personal history of urinary calculi; F17.210 Nicotine dependence, cigarettes, uncomplicated
CPT/HCPCS: 36415; 74177; 80053; 81001; 81025; 83605; 85025; 87086; 96361; 96374; 96375; 99284; A9270; J1170; J2270; J2405; J7030; Q9967